=== PATIENT | male | born 1935 | race Caucasian/White ===

== ENCOUNTER 2022-07-06 11:42 | Outpatient (CLI) | payer MEDICARE, SELFPAY ==
[2022-07-06 20:53] LABS: Alanine Aminotransferase 18 U/L (6-50); Albumin Level 4.5 g/dL (3.5-5.1); Alkaline Phosphatase 131 U/L (38-126); Anion Gap 13 mmol/L (8-16); Aspartate Amino Transferase 31 U/L (17-59); Blood Urea Nitrogen 32 mg/dL (9-20); Calcium 8.8 mg/dL (8.4-10.2); Carbon Dioxide 23 mmol/L (22-30); Chloride 104 mmol/L (98-107); Cholesterol 140 mg/dL (0-200); Estimated Glomerular Filt Rate 30; Glucose 118 mg/dL (65-110); HDL Direct 42 mg/dL; Potassium 5.4 mmol/L (3.4-5.0); Sodium 140 mmol/L (137-145); Triglycerides 171 mg/dL (<150)
[2022-07-06 21:04] LABS: LDL Cholesterol Direct 48 mg/dL
== END 2022-07-06 11:43 | disposition home or self-care (01) ==
LOC: ANHGOSHLAB 11:46
PROVIDERS: PCP Family Medicine; Visit Provider Family Medicine
DX: E78.49 Other hyperlipidemia (principal); N18.30 Chronic kidney disease, stage 3 unspecified
CPT/HCPCS: 36415; 80053; 80061

== ENCOUNTER → 2022-11-01 17:06 | Outpatient (CLI) | payer MEDICARE, SELFPAY ==
--- NOTE | ~2022-11-01 | XR_ITS ---
EXAMINATION: XR chest 2V Exam Date/Time: 11/01/2022 17:08 [employer] HISTORY: J39.8 - Other specified diseases of upper respiratory tract Comparison: 03/01/2016. RESULT: Lines, tubes, and devices: Intact sternotomy wires. Mediastinal surgical clips. Lungs and pleura: Senescent change. Right mid and lower lung scar. 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 Cardiomediastinal silhouette: Stable. Other: No acute osseous or upper abdominal finding. Small hiatal hernia. IMPRESSION: No acute cardiopulmonary process. Reviewed, dictated and finalized at location K. [employer] K[employer]PER
== END ==
PROVIDERS: PCP Family Medicine; Visit Provider Family Medicine
DX: J39.8 Other specified diseases of upper respiratory tract (principal)
CPT/HCPCS: 71046

== ENCOUNTER → 2023-01-25 10:54 | Outpatient (CLI) | payer MEDICARE, SELFPAY ==
--- NOTE | ~2023-01-25 | XR_ITS ---
XR chest 2V DATE: 01/25/2023 11:11 INDICATION: Cough, upper respiratory infection TECHNIQUE: AP and lateral views COMPARISON: 11/01/2022 PA and lateral chest 03/01/2016 PA and lateral chest FINDINGS: Status post sternotomy. Normal heart size. Moderate hiatal hernia. Chronic blunting of right costophrenic angle. Previously reported calcified pulmonary granuloma in th e lateral right mid lung field. No pulmonary infiltrate or consolidation, pleural effusion or pulmona ry vascular congestion or pneumothorax is detected. IMPRESSION: No active disease or significant change since prior examinations Reviewed, dictated and finalized at location L. [employer] ATTENDANT
== END ==
PROVIDERS: PCP Family Medicine; Visit Provider Family Medicine
DX: R05.9 Cough, unspecified (principal); J06.9 Acute upper respiratory infection, unspecified
CPT/HCPCS: 71046

== ENCOUNTER 2023-01-25 11:22 | Outpatient (CLI) | payer MEDICARE, SELFPAY | END 2023-01-25 11:23 | disposition home or self-care (01) | LOC: ANHGOSHLAB 11:23 | PROVIDERS: PCP Family Medicine; Visit Provider Family Medicine | DX: E11.9 Type 2 diabetes mellitus without complications (principal) | CPT/HCPCS: 36415; 83036 ==